=== PATIENT | female | born 1965 | race Caucasian/White ===

== ENCOUNTER 2018-06-27 14:38 | Outpatient (CLI) | payer OTHER ==
--- NOTE | 2018-06-27 19:13 | MRI ---
MRI RIGHT SHOULDER WITHOUT CONTRAST: Date: 06/27/18 HISTORY: Shoulder pain. S46.911D strain of right shoulder subsequent encounter. COMPARISON: Radiograph dated 05/17/18. FINDINGS: Biceps Tendon: Extraarticular biceps tendon is normal. Mild intraarticular biceps tendinosis. Labrum: There is a superior labral tear anterior-posterior to the biceps labral anchor, but does not appear t o extend into the biceps tendon itself. Rotator Cuff: There is a high grade bursal surface tear involving the entire supraspinatus tendon with 20-30% bursa l surface fraying and partial tearing of the anterior one-half of the infraspinatus tendon. This appe ars from the footprint for a length of approximately 1.2 cm along the tendon itself. No full thicknes s perforation is appreciated. Soft Tissues: There is a moderate subacromial/subdeltoid bursa effusion. Muscles: Muscle signal and bulk is normal. Bones: There is advanced degenerative disease of the acromioclavicular joint. There is some mild lateral johanne nsloping of the acromion, which narrows the subacromial space approximately 4.0 mm. IMPRESSION: 1. 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 2. 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 There is 30-40% partial tearing in the anterio r one-half of the infraspinatus tendon. 3. Moderate subacromial/subdeltoid bursa effusion. 4. Lateral downsloping of the acromion near the subacromial space, likely the cause of the bursal shelley rface partial tearing and fraying. 5. Normal muscle signal and bulk. POS: [facility]
== END 2018-06-27 14:39 | disposition home or self-care (01) ==
LOC: SCSMRI 14:38
PROVIDERS: ATTEND Family Medicine
DX: S46.911D Strain of unspecified muscle, fascia and tendon at shoulder and upper arm level, right arm, subsequent encounter (principal); S43.401A Unspecified sprain of right shoulder joint, initial encounter; M75.111 Incomplete rotator cuff tear or rupture of right shoulder, not specified as traumatic; M25.411 Effusion, right shoulder

== ENCOUNTER 2022-12-15 08:19 | Outpatient (CLI) | payer BC | END 2022-12-15 08:20 | disposition home or self-care (01) | LOC: TBSIIMAG 08:19 | PROVIDERS: ATTEND Neurological Surgery | DX: M51.36 Other intervertebral disc degeneration, lumbar region (principal); M48.061 Spinal stenosis, lumbar region without neurogenic claudication | CPT/HCPCS: 72148 ==